=== PATIENT | male | born 1985 | race Caucasian/White ===

== ENCOUNTER 2018-01-25 00:32 | Inpatient (IN) | payer OTHER, MEDICAID ==
[2018-01-25] MEDS: BUPIVACAINE 0.5% 30 ML VIAL INJ
[2018-01-25] MEDS: LIDOCAINE 1%/EPI 30 ML INJ INJ
[2018-01-25 01:20] LABS: URINE BLOOD (Dip) POC Trace-intact (NEGATIVE); URINE GLUCOSE (Dip) POC Negative (NEGATIVE); URINE KETONES (Dip) POC Negative (NEGATIVE); URINE LEUKOCYTE EST (Dip) POC Negative (NEGATIVE); URINE NITRITE (Dip) POC Negative (NEGATIVE); URINE TOTAL PROTEIN POC 1+ (NEGATIVE)
[2018-01-25] MEDS: KETOROLAC 30 MG INJ IV (01:26)
[2018-01-25 02:35] LABS: ADD MAN DIFF? NO
[2018-01-25 02:38] LABS: WHITE BLOOD COUNT 25.6 10^3/ul (4.8-10.8)
[2018-01-25 02:38] LABS: BASOPHIL # 0.1 10^3/ul (0.0-0.1); BASOPHILS % 0.5 % (0.0-2.0); EOSINOPHILS # 0.3 10^3/ul (0.0-0.5); HEMOGLOBIN 16.1 g/dl (14.0-18.0); LYMPHOCYTES # 3.6 10^3/ul (0.8-2.9); LYMPHOCYTES % 14.2 % (15.0-51.0); MEAN CORPUSCULAR HEMOGLOBIN 28.6 pg (29.0-33.0); MEAN CORPUSCULAR VOLUME 81.9 fl (82.0-101.0); MEAN PLATELET VOLUME 8.5 fl (7.4-10.4); MONOCYTE # 1.5 10^3/ul (0.3-0.9); MONOCYTES % 5.9 % (0.0-11.0); NEUTROPHIL # 19.8 10^3/ul (1.6-7.5); NEUTROPHILS % 77.4 % (39.0-77.0); PLATELET COUNT 379 10^3/UL (140-415); RED BLOOD COUNT 5.62 10^6/ul (4.70-6.10); RED CELL DISTRIBUTION WIDTH 13.5 % (11.5-14.5)
[2018-01-25] MEDS: SOD CHLORIDE 0.9% 1,000 ML IV ×2 (02:46→15:47)
[2018-01-25] MEDS: PIPER-TAZO 3.375 GM IV (PMX) 100 ML IVPB ×3 (02:46→22:43)
[2018-01-25 02:55] LABS: ALANINE AMINOTRANSFERASE 40 IU/L (13-69); ALBUMIN 4.4 g/dl (3.3-4.9); ALKALINE PHOSPHATASE 127 IU/L (42-121); ANION GAP 15 (8-16); ASPARTATE AMINO TRANSFERASE 26 IU/L (15-46); BILIRUBIN,INDIRECT 1.1 mg/dl (0-1.1); BILIRUBIN,TOTAL 1.1 mg/dl (0.2-1.3); BLOOD UREA NITROGEN 9 mg/dl (7-20); CARBON DIOXIDE 27 mmol/L (21-31); CHLORIDE 101 mmol/L (97-110); CREATININE 0.79 mg/dl (0.61-1.24); GLUCOSE 128 mg/dl (70-220); LIPASE 24 U/L (23-300); SODIUM 139 mmol/L (135-144); TOTAL PROTEIN 8.4 g/dl (6.1-8.1)
[2018-01-25 03:03] LABS: BARBITURATES Negative (NEGATIVE); BENZODIAZEPINES Negative (NEGATIVE); CANNABINOIDS Positive (NEGATIVE); COCAINE Negative (NEGATIVE); OPIATES Negative (NEGATIVE)
[2018-01-25 03:13] LABS: AMPHETAMINE/METHAMPHETAMINE POSITIVE (NEGATIVE)
[2018-01-25] MEDS ORDERED: ONDANSETRON 4 MG INJ IV ×2 (06:30→09:00)
[2018-01-25] MEDS ORDERED: ACETAMINOPHEN 325 MG TAB PO (06:30)
[2018-01-25] MEDS ORDERED: ROCURONIUM 50 MG INJ (07:00)
[2018-01-25] MEDS ORDERED: LIDOCAINE 2% (SDV) 5 ML INJ (07:00)
[2018-01-25] MEDS ORDERED: BUPIVACAINE 0.5% (SDV) 30 ML INJ (08:34)
[2018-01-25] MEDS ORDERED: OXYCODONE/ACETAMINOPHEN (5/325) TAB PO ×2 (09:00)
[2018-01-25] MEDS ORDERED: MEPERIDINE 25 MG INJ IV (09:00)
[2018-01-25] MEDS ORDERED: KETOROLAC 30 MG INJ IV (09:00)
[2018-01-25] MEDS ORDERED: MIDAZOLAM 1 MG/ML 2 ML INJ IV (09:00)
[2018-01-25] MEDS ORDERED: EPHEDrine SULFATE 50 MG/5 ML SYG IV (09:00)
[2018-01-25] MEDS ORDERED: ALBUTEROL 0.083% (NEB) 2.5 MG/3 ML AMP HHN (09:00)
[2018-01-25] MEDS ORDERED: METOCLOPRAMIDE 10 MG INJ IV (09:00)
[2018-01-25] MEDS ORDERED: HYDROmorphONE 1 MG/5 ML IV SYRINGE IV ×3 (09:00)
[2018-01-25] MEDS ORDERED: FENTAnyl 50 MCG/ML VIAL IV ×3 (09:00)
[2018-01-25] MEDS ORDERED: LABETALOL HCL 20MG INJ IV (09:00)
[2018-01-25] MEDS ORDERED: DIPHENHYDRAMINE 50 MG INJ IV (09:00)
[2018-01-25] MEDS ORDERED: hydrALAzine 20 MG INJ IV (09:00)
[2018-01-25] MEDS ORDERED: PROPOFOL 20 ML (09:05)
[2018-01-25] MEDS ORDERED: LIDOCAINE 1%/EPI 30 ML INJ (09:08)
[2018-01-25] MEDS ORDERED: LABETALOL HCL 20MG INJ (09:18)
[2018-01-25] MEDS ORDERED: ROPIVACAINE 0.5 % 30 ML VIAL (10:19)
[2018-01-25] MEDS ORDERED: HYDROCODONE/APAP (5/325) TAB PO (11:00)
[2018-01-25] MEDS ORDERED: FENTAnyl 50 MCG/ML VIAL (15:28)
[2018-01-26] MEDS: HYDROCODONE/APAP (5/325) TAB PO ×2 (01:16→06:09)
[2018-01-26 05:38] LABS: ADD MAN DIFF? NO
[2018-01-26 05:47] LABS: BASOPHIL # 0.1 10^3/ul (0.0-0.1); BASOPHILS % 0.6 % (0.0-2.0); EOSINOPHILS # 0.5 10^3/ul (0.0-0.5); EOSINOPHILS % 3.1 % (0.0-7.0); HEMATOCRIT 42.8 % (42.0-52.0); HEMOGLOBIN 14.4 g/dl (14.0-18.0); LYMPHOCYTES # 3.8 10^3/ul (0.8-2.9); LYMPHOCYTES % 25.2 % (15.0-51.0); MEAN CORPUSCULAR HEMOGLOBIN 28.3 pg (29.0-33.0); MEAN CORPUSCULAR HGB CONC 33.6 g/dl (32.0-37.0); MEAN CORPUSCULAR VOLUME 84.1 fl (82.0-101.0); MEAN PLATELET VOLUME 8.4 fl (7.4-10.4); MONOCYTE # 1.2 10^3/ul (0.3-0.9); MONOCYTES % 7.8 % (0.0-11.0); NEUTROPHIL # 9.5 10^3/ul (1.6-7.5); NEUTROPHILS % 62.7 % (39.0-77.0); PLATELET COUNT 380 10^3/UL (140-415); RED BLOOD COUNT 5.09 10^6/ul (4.70-6.10); RED CELL DISTRIBUTION WIDTH 13.5 % (11.5-14.5)
[2018-01-26 05:47] LABS: WHITE BLOOD COUNT 15.1 10^3/ul (4.8-10.8)
[2018-01-26] MEDS: PIPER-TAZO 3.375 GM IV (PMX) 100 ML IVPB ×2 (06:01→16:06)
[2018-01-26 06:26] LABS: ANION GAP 13 (8-16); BLOOD UREA NITROGEN 7 mg/dl (7-20); CALCIUM 8.5 mg/dl (8.4-10.2); CARBON DIOXIDE 24 mmol/L (21-31); CHLORIDE 107 mmol/L (97-110); CREATININE 0.81 mg/dl (0.61-1.24); GLUCOSE 105 mg/dl (70-220); POTASSIUM 3.8 mmol/L (3.5-5.1); SODIUM 140 mmol/L (135-144)
[2018-01-26] MEDS: SOD CHLORIDE 0.9% 1,000 ML IV (11:30)
== END 2018-01-26 18:20 | disposition home or self-care (01) | DRG 342 ==
LOC: E/R 00:32 → MS1 08:56 → REC 06:28 → MS1 13:00
PROC: 0DTJ4ZZ Resection of Appendix, Percutaneous Endoscopic Approach (ICD-10-PCS; principal; 2018-01-25 07:30)
DX: K35.80 Unspecified acute appendicitis (principal); F15.20 Other stimulant dependence, uncomplicated; E66.9 Obesity, unspecified; Z68.37 Body mass index [BMI] 37.0-37.9, adult; F17.210 Nicotine dependence, cigarettes, uncomplicated; F12.20 Cannabis dependence, uncomplicated
CPT/HCPCS: 36415; 71045; 74176; 80048; 80053; 80307; 81003; 83690; 85025; 88304; 93005; 96374; 96375; 99285-25